=== PATIENT | female | born 1960 | race African-American/Black ===

== ENCOUNTER → 2016-04-26 | Outpatient (CLI) | payer OTHER ==
[~2016-04-26] MED LIST: REGADENOSON INJ 0.4 MG/5 ML DISP.SYRIN IV ONE
--- NOTE | 2016-04-28 11:44 | DRAGON STRESS TEST REPORT ---
Intravenous Lexiscan Cardiolite stress test using single photon emmision computerized tomography. Date of procedure: 04/26/2016. Ordering Provider: Dr. Tanesha Billy. Indication: Chest pain, and dyspnea on exertion. Coronary risk factors: Age. Resting EKG: Sinus Rhythm. Poor R wave leads V1 to V6. Stress EKG: No changes of ischemia. The patient had no chest pain or discomfort, and there were no arrhythmias seen. Reason for termination: Protocol. Conclusions: Normal EKG and hemodynamic response to IV Lexiscan. Nuclear data: At rest the patient was given 15.20 millicuries of technetium 99m sestamibi injected intravenously. As per protocol rest non gated SPECT images were obtained. Subsequently the patient was given intravenous Lexiscan at a dose of 0.4 mg in 5 mL intravenously, followed by flush with normal saline. Subsequently the stress dose of 44.8 millicuries of technetium 99m sestamibi was injected intravenously. As per protocol stress gated images were obtained. Nuclear interpretation: Review of images showed there was a perfusion defect in the basal inferior wall in the rest images only, with normal perfusion in this area in the stress images. The rest of the segments of the myocardium had normal perfusion at rest , and normal perfusion post stress with IV Lexiscan. All segments of the myocardium had normal motion, contraction, and thickening by gated study. T. I D. ratio was read as abnormal at 1.21. This is not reliable, and visually the T I D ratio was normal Computer read rest, and stress left ventricular ejection fraction were 66 %, and 65%, respectively. Visually both the stress and rest ejection fractions were normal, and greater than 65%. Conclusion: 1. There is no scintigraphic evidence of Lexiscan induced myocardial ischemia. 2. There is no scintigraphic evidence of myocardial infarction/scar. Recommendations: Aggressive risk factor modification, and treating the underlying co- morbidities. MTDD
== END ==
LOC: RAD 07:52
PROVIDERS: ATTEND Specialist
DX: R07.9 Chest pain, unspecified (principal); R06.00 Dyspnea, unspecified
CPT/HCPCS: 93017; 78452; A9500; J2785; Q9969

== ENCOUNTER → 2016-05-23 | Outpatient (CLI) | payer MEDICAID, OTHER ==
--- NOTE | 2016-05-23 19:12 | XCELERA REPORT ---
[address] [address] Transthoracic Echocardiogram Report Name: LIKELY, JOHNATHAN E Age: 55 yrs Gender: Female : 1960 Patient Status: Outpatient Patient Location: Study Date: 05/23/2016 12:47 PM Height: 66 in Weight: 230 lb BSA: 2.1 m2 Procedure: A two-dimensional transthoracic echocardiogram with color flow and Doppler was performed. The study was technically difficult with many images being suboptimal in quality. Reason For Study: CHEST PAIN / DYSPNEA ON EXERTION. History: CHEST PAIN / DYSPNEA ON EXERTION. Ordering Physician: TANESHA HAMMOND Performed By: Sandee Cloud Interpretation Summary The left ventricle is normal in size. There is normal left ventricular wall thickness. LV EF is > than 60% Left ventricular systolic function is normal. Doppler measurements suggest impaired left ventricular relaxation, which is associated with grade I/IV or mild diastolic dysfunction The left ventricular wall motion is normal. There is no thrombus. The left atrial size is normal. The interatrial septum is intact with no evidence for an atrial septal defect. There is no evidence of mitral valve prolapse. There is no mitral valve stenosis. There is a trace amount of mitral regurgitation There is no aortic valve stenosis There is no LVOT obstruction. No aortic regurgitation is present. There is no tricuspid stenosis. There is a mild amount of tricuspid regurgitation There is mild pulmonary hypertension by echo RVSP is 34 mm of Hg , with RA mean of 5. The aortic root is normal size. There is no pericardial effusion. MMode/2D Measurements \T\ Calculations RVDd: 2.4 cm LVIDd: 4.6 cm FS: 39.7 % Ao root diam: 2.6 cm IVSd: 1.0 cm LVIDs: 2.8 cm EDV(Teich): 98.3 ml LVPWd: 1.0 cm ESV(Teich): 29.2 ml Ao root area: 5.4 cm2 EF(Teich): 70.3 % LA dimension: 3.7 cm LVOT diam: 2.1 cm LVOT area: 3.4 cm2 Doppler Measurements \T\ Calculations MV E max maria fernanda: MV P1/2t max maria fernanda: Ao V2 max: LV V1 max P.4 cm/sec 66.1 cm/sec 127.0 cm/sec 2.9 mmHg MV A max maria fernanda: MV P1/2t: 55.1 msec Ao max PG: LV V1 max: 55.4 cm/sec MVA(P1/2t): 4.0 cm2 6.5 mmHg 85.5 cm/sec MV E/A: 1.2 MV dec slope: VANESSA(V,D): 2.3 cm2 351.2 cm/sec2 MV dec time: 0.19 sec PA V2 max: TR max maria fernanda: 60.0 cm/sec 270.4 cm/sec PA max PG: TR max P.2 mmHg 1.4 mmHg Left Ventricle The left ventricle is normal in size. There is normal left ventricular wall thickness. LV EF is > than 60%. Left ventricular systolic function is normal. Doppler measurements suggest impaired left ventricular relaxation, which is associated with grade I/IV or mild diastolic dysfunction. The left ventricular wall motion is normal. There is no thrombus. There is no ventricular septal defect visualized. Right Ventricle The right ventricle is normal in size and function. Atria The right atrium is normal. The left atrial size is normal. The interatrial septum is intact with no evidence for an atrial septal defect. Mitral Valve There is no evidence of mitral valve prolapse. There is no vegetation seen on the mitral valve. There is no mitral valve stenosis. There is a trace amount of mitral regurgitation. Aortic Valve The aortic valve is trileaflet. The aortic valve opens well. There is no aortic valvular vegetation. There is no aortic valve stenosis. There is no LVOT obstruction. No aortic regurgitation is present. Tricuspid Valve There is no tricuspid stenosis. There is a mild amount of tricuspid regurgitation. There is mild pulmonary hypertension by echo. RVSP is 34 mm of Hg , with RA mean of 5. Pulmonic Valve There is no pulmonic valvular stenosis. There is no pulmonic valvular regurgitation. Great Vessels The aortic root is normal size. Effusions There is no pericardial effusion. : TANESHA HAMMOND > Tanesha Hammond
== END ==
LOC: SP 12:22
PROVIDERS: ATTEND Specialist
DX: R07.9 Chest pain, unspecified (principal); R06.09 Other forms of dyspnea
CPT/HCPCS: 93306